=== PATIENT | female | born 1980 | race Caucasian/White ===

== ENCOUNTER → 2017-07-05 13:39 | Outpatient (CLI) | payer OTHER, SELFPAY | PROVIDERS: Family Provider Family Medicine; PCP Family Medicine; Visit Provider Family Medicine | DX: R55 Syncope and collapse (principal); R00.2 Palpitations | CPT/HCPCS: 93225; 93226 ==

== ENCOUNTER 2017-07-07 09:03 | Emergency (ER) | payer OTHER, SELFPAY ==
[2017-07-07 09:03] VITALS: BP 155/93; PULSE 131; RESP 20; TEMP 36.6; O2SAT 100; BMI 28.2
--- NOTE | 2017-07-07 09:05 | NURSING ---
NO OLD EKGS
--- NOTE | 2017-07-07 09:14 | EKG12_ITS ---
Test Reason : PALPS Blood Pressure : / mmHG Vent. Rate : 119 BPM Atrial Rate : 119 BPM P-R Int : 146 ms QRS Dur : 078 ms QT Int : 316 ms P-R-T Axes : 059 067 023 degrees QTc Int : 444 ms Sinus tachycardia Otherwise normal ECG Confirmed by LISSA GARY, AYAH ([id number]), writer editor JARVIS WILHELM ([id number]) on 07/13/2017 8:55:05 AM Referred By: ERIK/EUGENIO Confirmed By:AYAH ALCARAZ MD
--- NOTE | 2017-07-07 09:14 | RAD_ITS ---
STUDY: X-RAY CHEST REASON FOR EXAM: Female, 37 years old. Palpitations. Dizziness. TECHNIQUE: Single AP portable view of the chest. COMPARISON: None. FINDINGS: The lungs are clear and expanded. Scattered calcified granulomas. There is no demonstrated pleural abnormality. Normal size heart. Normal mediastinum and leyla. Normal visualized pulmonary arteries. Normal visualized aortic arch and descending thoracic aorta. Normal visualized thoracic spine. Normal visualized ribs, clavicles, and shoulders. There is no demonstrated abnormality of the visualized soft tissue structures of the upper abdomen. RAD/Chest 1 View (Portable) IMPRESSION: Normal x-ray examination of the chest. Electronically Signed: Maurizio Mcadams MD at 9:53 EDT Tel [phone], Service support ,
--- NOTE | 2017-07-07 09:29 | ED.VISSUMM ---
- ER Visit Summary Date of Service: 07/07/17 Chief Complaint: Palpitations History of Present Illness: The patient is a 37 F history of hypothyroidism. Patient's been having intermittent palpitations for 3-4 months. He has had labs that were negative. Has had a Holter monitor recently which is waiting for the results and a follow-up appointment with cardiology. Physical Examination: Well-appearing young female. Vital signs are stable other than her heart rate in the 130s. She does not look septic or toxic. She is no acute distress. HEENT exam unremarkable. Neck nontender no lymphadenopathy. No thyromegaly. Trachea midline. Lungs clear to auscultation bilaterally. Heart tachycardic rate in 130s no murmur. Abdomen soft and nontender. Normal bowel sounds no peritoneal signs. She is moving all 4 extremities. Calves nontender without edema or cords. Neurologically she is awake and alert without any focal motor deficits. Neck exam normal. Test Results: He was elevated 21,500 etiology. H&H 12 and 39. Platelet count of 505,000. Segmental neutrophils 82. Chemistries were normal. Normal BUN and creatinine and gap. Due to the high white count I did do a urinalysis which was normal. Troponin was normal. TSH was normal at 1.04. EKG sinus tachycardia 119. Chest x-ray normal normal cardiac silhouette and mediastinum read both by myself and the radiologist. Emergency Department Course and Treatment: She is doing well on repeat exam she took 1 of her home atenolol. Currently her heart rates are on 100. When she stands up and walk to the bathroom before taking her medication her heart rate went as high as 170-180. 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 Lane's office and their attempt to move up her appointment from next week to sometimes sooner. Patient and her spouse are comfortable with the plan. She may try to increase her atenolol to twice a day depending on her heart rate and blood pressures at time. Treatment Plan: [] Disposition: Discharge Impression: Acute palpitations with sinus tachycardia Leukocytosis of uncertain etiology without any signs of acute infection This note was generated with [employer] software. It may contain incorrect words, spelling, and punctuation that were not noted in review of the chart prior to signing ED Disposition - Plan for ED Patient: Chief Complaint: Palpitations Referrals: Mahesh Neil III, MD [Primary Care Provider] -
--- NOTE | 2017-07-07 09:35 | ED.DCSUM_ITS ---
- ER Visit Summary Date of Service: 07/07/17 Chief Complaint: Palpitations History of Present Illness: The patient is a 37 F history of hypothyroidism. Patient's been having intermittent palpitations for 3-4 months. He has had labs that were negative. Has had a Holter monitor recently which is waiting for the results and a follow-up appointment with cardiology. Physical Examination: Well-appearing young female. Vital signs are stable other than her heart rate in the 130s. She does not look septic or toxic. She is no acute distress. HEENT exam unremarkable. Neck nontender no lymphadenopathy. No thyromegaly. Trachea midline. Lungs clear to auscultation bilaterally. Heart tachycardic rate in 130s no murmur. Abdomen soft and nontender. Normal bowel sounds no peritoneal signs. She is moving all 4 extremities. Calves nontender without edema or cords. Neurologically she is awake and alert without any focal motor deficits. Neck exam normal. Test Results: He was elevated 21,500 etiology. H&H 12 and 39. Platelet count of 505,000. Segmental neutrophils 82. Chemistries were normal. Normal BUN and creatinine and gap. Due to the high white count I did do a urinalysis which was normal. Troponin was normal. TSH was normal at 1.04. EKG sinus tachycardia 119. Chest x-ray normal normal cardiac silhouette and mediastinum read both by myself and the radiologist. Emergency Department Course and Treatment: She is doing well on repeat exam she took 1 of her home atenolol. Currently her heart rates are on 100. When she stands up and walk to the bathroom before taking her medication her heart rate went as high as 170-180. 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 Lane's office and their attempt to move up her appointment from next week to sometimes sooner. Patient and her spouse are comfortable with the plan. She may try to increase her atenolol to twice a day depending on her heart rate and blood pressures at time. Treatment Plan: [] Disposition: Discharge Impression: Acute palpitations with sinus tachycardia Leukocytosis of uncertain etiology without any signs of acute infection This note was generated with [employer] software. It may contain incorrect words, spelling, and punctuation that were not noted in review of the chart prior to signing ED Disposition - Plan for ED Patient: Chief Complaint: Palpitations Referrals: Mahesh Neil III, MD [Primary Care Provider] -
[2017-07-07 09:36] LABS: Absolute Lymphocyte Count 1.85 X10^3/ul (0.83-4.51); Absolute Neutrophil Count 17.8 X10^3/uL (2.0-7.7); Basophil# 0.08 X10^3/uL; Basophil% 0.4 % (0-1); Eosinophil# 0.45 X10^3/uL; Eosinophils% 2.1 % (0-5); Hematocrit 39.8 % (37-47); Hemoglobin 12.6 g/dl (12.0-15.0); Lymphocyte # 1.85 X10^3/ul (4.0); Lymphocyte % 8.6 % (19-41); Mean Corp Hgb Conc 31.7 g/gl (32-36); Mean Corpuscular Hgb 26.1 pg (27.0-32.0); Mean Corpuscular Volume 82.4 fL (81-99); Mean Platelet Vol. 8.3 fl (6.2-12.0); Monocyte# 1.26 X10^3/uL; Monocyte% 5.9 % (0-10); Neutrophil # 17.82 X10^3/uL (2.7-7.7); Neutrophil % 82.7 % (47-70); Platelet Count 505 K/mm3 (150-450); RBC Distribution Width CV 14.1 % (11.6-14.6); RBC Distribution Width SD 41.8 fl (35.1-43.9); Red Blood Count 4.83 M/mm3 (4.2-5.4); White Blood Count 21.5 K/mm3 (4.4-11.0)
[2017-07-07 09:38] LABS: POSITIVE COUNT NO; POSITIVE DIFFERENTIAL NO; POSITIVE MORPHOLOGY NO
[2017-07-07 10:12] LABS: Anion Gap 9 (5-15); BUN 7 mg/dL (7-18); BUN/Creat Ratio 8.2 RATIO (10-20); Calcium,Total 8.9 mg/dL (8.5-10.1); Chloride 103 mmol/L (98-107); Creatinine, Serum 0.85 mg/dL (0.55-1.02); EST Glomerular Filtration Rate 80 mL/min (>60); Est Glom Filt Rate - Afr Amer 97 mL/min (>60); Estimated Creatinine Clearance 78.25 ml/min; Glucose 97 mg/dL (74-106); Sodium Level 139 mmol/L (136-145); Thyroid Stim Hormone (TSH) 1.04 uIU/mL (0.358-3.74)
[2017-07-07 10:22] VITALS: BP 133/84; PULSE 113; RESP 20; O2SAT 97
[2017-07-07 11:12] VITALS: BP 131/97; PULSE 127; RESP 14; O2SAT 98
[2017-07-07 11:21] LABS: Bacteria 0 SEEN /hpf (None Seen); Mucous, Urine 0 SEEN /hpf (<or=2+)
[2017-07-07 11:28] LABS: Color, Urine Straw (Yellow); Glucose, Dipstick Normal (Normal); Ketone-Dipstick Negative (Negative); Leukocyte Esterase-Dipstick 25 /ul (Negative); Nitrite-Dipstick Negative (Negative); Occult Blood-Urine Negative /ul (Negative); Protein-Dipstick Negative (Negative); Urine Bilirubin Dipstick Negative (Negative); Urine Clarity Clear (Clear); Urine Urobilinogen Normal (Normal)
[2017-07-07 11:38] LABS: Red Blood Cells-Urine 0-5 SEEN /hpf (0-5); Squamous Epithelial Cells - UA 0-5 SEEN /hpf (5-10); White Blood Cells 0-5 SEEN /hpf (0-5)
[2017-07-07 12:03] VITALS: BP 96/75; PULSE 101; RESP 14; O2SAT 99
--- NOTE | 2017-07-07 13:53 | ED.DEP ---
ED Disposition - Plan for ED Patient: Disposition: Home or Assisted Living Chief Complaint: Palpitations Instructions: ED Palpitations Referrals: Suhas Lane MD [STAFF PHYSICIAN] - As soon as possible Additional Instructions: Dr. Lane's office call them as he can get her appointment moved up 2 later this week or earlier next week. You may want to increase her atenolol to twice a day however before you do that you need to check your heart rate and your blood pressure. If your blood pressure is 110 or lower I would not take a second dose. If your heart rate is 100 or less I would not take a second dose.
[2017-07-07 13:57] VITALS: BP 105/80; PULSE 98; RESP 14; O2SAT 99
== END 2017-07-07 14:02 | disposition home or self-care (01) ==
PROVIDERS: Emergency Provider Emergency Medicine; Family Provider Family Medicine; PCP Family Medicine
DX: R00.2 Palpitations (principal); R00.0 Tachycardia, unspecified; D72.829 Elevated white blood cell count, unspecified; E03.9 Hypothyroidism, unspecified; Z79.899 Other long term (current) drug therapy
CPT/HCPCS: 71045; 80048; 81001; 84443; 84484; 85025; 93005; 99285; A4216

== ENCOUNTER → 2017-08-03 08:45 | Outpatient (CLI) | payer OTHER, SELFPAY ==
--- NOTE | 2017-08-03 08:47 | ECHOD_ITS ---
Reason For Study: Arrhythmia Procedure This was a 2D Doppler, Color Flow transthoracic echocardiogram. The exam was of fair technical quality due to diminished acoustic images. The study was technically difficult. Exam performed in department. Left Ventricle Normal LV size. Left ventricular systolic function is normal. The estimated ejection fraction is 65 %. No evidence for diastolic dysfunction. No regional wall motion abnormalities noted. Right Ventricle Normal RV size. Normal systolic function. Atria Normal left atrium. Normal right atrium. No doppler evidence for ASD. Mitral Valve There is no mitral annular calcification. Normal mitral valve. Trivial mitral valve insufficiency. Tricuspid Valve Normal tricuspid valve. Trivial tricuspid valve insufficiency. Unable to estimate RV systolic pressure/pulmonary artery pressure due to technically difficult study. Aortic Valve Trisinus/trileaflet aortic valve. Normal aortic valve. Pulmonic Valve The pulmonic valve is not well visualized. Trivial pulmonic valve insufficiency. Great Vessels Normal sized aortic root. Pericardium/Pleural No pericardial effusion. MMode/2D Measurements & Calculations LVIDd: 4.3 cm IVSd: 0.85 cm Ao root diam: 2.7 cm LVIDs: 2.8 cm LVPWd: 0.82 cm LA dimension: 2.9 cm RVDd: 2.7 cm FS: 34.8 % LAV(MOD-bp): 31.6 ml LA A4 area: 15.4 cm2 RA A4 area: 10.5 cm2 LAV(MOD-bp) Indexed: 17.7 ml/m2 LAV(MOD-sp2): 23.8 ml LAV(MOD-sp4): 40.8 ml Doppler Measurements & Calculations MV E max seth: 77.8 cm/sec Lat Peak E' Seth: 12.7 cm/sec Med Peak E' Seth: 9.3 cm/sec MV A max seth: 59.7 cm/sec E/E' lat: 6.1 E/E' med: 8.4 MV E/A: 1.3 Ao V2 max: 116.0 cm/sec LV V1 max: 101.2 cm/sec PA V2 max: 86.1 cm/sec Ao max P.4 mmHg LV V1 max P.1 mmHg Interpretation Summary The study was technically difficult. Left ventricular systolic function is normal. The estimated ejection fraction is 65 %. Trivial mitral valve insufficiency. Trivial tricuspid valve insufficiency. Trivial pulmonic valve insufficiency. Unable to estimate RV systolic pressure/pulmonary artery pressure due to technically difficult study. No evidence for diastolic dysfunction. Ordering Physician: Suhas Lane Referring Physician: GENEVIEVE Neil M.D. Performed By: Mitzi Marin RDCS
== END ==
PROVIDERS: Family Provider Family Medicine; PCP Family Medicine; Visit Provider Internal Medicine Cardiovascular Disease
DX: R00.0 Tachycardia, unspecified (principal); R06.09 Other forms of dyspnea; A69.20 Lyme disease, unspecified
CPT/HCPCS: 93306

== ENCOUNTER → 2017-10-27 11:33 | Outpatient (CLI) | payer OTHER, SELFPAY | PROVIDERS: Family Provider Family Medicine; PCP Family Medicine; Visit Provider Chiropractor | DX: M99.03 Segmental and somatic dysfunction of lumbar region (principal) | CPT/HCPCS: 72110 ==